=== PATIENT | female | born 1945 | race American Indian/Alaskan Native ===

== ENCOUNTER 2018-02-05 06:14 | Day surgery (SDC) | payer MEDICARE ==
[~2018-02-05 06:14] MED LIST: ANCEF/STERILE WATER 2 GM/20 ML 2 GM/20 ML SYRINGE IV NR; NACL 0.9% 1000 ML 1,000 ML IV SCH
[2018-02-05] MEDS ORDERED: NACL BACTERIOSTATIC INFILTRATI ONE (06:23)
[2018-02-05] MEDS ORDERED: XYLOCAINE MPF 2% ONE (07:01)
[2018-02-05] MEDS ORDERED: DIPRIVAN 10 MG/ML IV ONE (07:01)
[2018-02-05] MEDS ORDERED: DILAUDID ONE (07:03)
[2018-02-05 07:14] LABS: Basophils % (Auto) 0.8 % (0.0-1.8); Eosinophils # (Auto) 0.2 K/mm3 (0.0-0.4); Eosinophils % (Auto) 5.2 % (0.0-4.3); Hemoglobin 9.4 gm/dl (10.1-14.3); Lymphocytes # (Auto) 0.8 K/mm3 (1.2-5.4); Lymphocytes % (Auto) 20.3 % (13.4-35.0); Mean Corpuscular HGB Conc 33 % (30-34); Mean Corpuscular Hemoglobin 29 pg (28-32); Mean Corpuscular Volume 86 fl (79-97); Monocytes # (Auto) 0.5 K/mm3 (0.0-0.8); Monocytes % (Auto) 11.8 % (0.0-7.3); Platelet Count 222 K/mm3 (140-440); Red Blood Count 3.25 M/mm3 (3.65-5.03); Red Cell Distribution Width 16.5 % (13.2-15.2)
[2018-02-05] MEDS ORDERED: RIFADIN ONE (07:19)
[2018-02-05] MEDS ORDERED: MARCAINE 0.5% 30 ML INFILTRATI ONE (07:19)
[2018-02-05] MEDS ORDERED: NACL ONE (07:19)
[2018-02-05] MEDS ORDERED: HEPARIN 10,000 UNITS/10 ML ONE (07:19)
[2018-02-05] MEDS ORDERED: NACL 0.9% 500 ML 500 ML ONE (07:19)
[2018-02-05 07:26] LABS: Calcium 9.4 mg/dL (8.4-10.2)
[2018-02-05] MEDS ORDERED: DILAUDID IV PRN (07:26)
[2018-02-05] MEDS ORDERED: ZOFRAN IV PRN (07:26)
--- NOTE | 2018-02-05 07:36 | Anesthesia Consultation ---
Anesthesia Consult and Med Hx Date of service: 02/05/18 - Airway Anesthetic Teeth Evaluation: Edentulous ROM Head & Neck: Adequate Mental/Hyoid Distance: Adequate Mallampati Class: Class I Intubation Access Assessment: Good - Pulmonary Exam CTA: Yes - Cardiac Exam Anesthetic Concerns: Mild murmur detected during auscultation. - Pre-Operative Health Status ASA Pre-Surgery Classification: ASA4 Proposed Anesthetic Plan: General - Cardiovascular System Hx Hypertension: Yes (30 YEARS) - Central Nervous System Hx Psychiatric Problems: No - Endocrine Hx End Stage Renal Disease: Yes (Hx Left nephrectomy) Hx Hypothyroidism: Yes (Hx Thyroidectomy) - Hematic Hx Anemia: Yes (S/P 5 unit transfusion of pRBC's hgb 9.5 today) - Other Systems Hx Alcohol Use: No Hx Substance Use: No Hx Cancer: No Hx Obesity: Yes (bmi 42) - Additional Comments Anesthesia Medical History Comments: NAC
--- NOTE | 2018-02-05 07:37 | Anesthesia Day of Surgery ---
Anesthesia Day of Surgery - Day of Surgery Patient Examined: Yes Patient H&P Reviewed: Yes Patient is NPO: Yes
[2018-02-05] MEDS ORDERED: VERSED IV NR (08:00)
[2018-02-05] MEDS ORDERED: NACL 0.9% 1000 ML 1,000 ML IV SCH (08:00)
[2018-02-05] MEDS ORDERED: HEPARIN 10,000 UNITS/10 ML IV ONE (08:12)
[2018-02-05] MEDS ORDERED: RIFADIN IV ONE (08:12)
[2018-02-05] MEDS ORDERED: NACL 0.9% IR ONE (08:12)
[2018-02-05] MEDS ORDERED: NACL 0.9% 500 ML IRRIGATION ONE (08:12)
[2018-02-05] MEDS ORDERED: MARCAINE 0.5% INFILTRATI ONE (08:12)
[2018-02-05] MEDS ORDERED: ZOFRAN ONE (08:29)
[2018-02-05] MEDS ORDERED: DECADRON ONE (08:29)
--- NOTE | 2018-02-05 10:31 | Short Stay Summary ---
Short Stay Documentation Date of service: 02/05/18 Narrative H&P: See H&P - History H&P: obtained from office - Allergies and Medications Current Medications: Allergies No Known Allergies Allergy (Unverified 01/21/16 16:03) Home Medications Medication Instructions Recorded Confirmed Last Taken Type amLODIPine [Norvasc] 10 mg PO QDAY #30 tablet 01/24/16 02/05/18 02/04/18 07:00 Rx AtorvaSTATin [Lipitor] 20 mg PO QHS 01/31/18 02/05/18 02/04/18 07:00 History Furosemide [Lasix TAB] 40 mg PO QDAY 01/31/18 02/05/18 02/04/18 07:00 History Hydralazine HCl 50 mg PO TID 01/31/18 02/05/18 02/04/18 18:00 History Metoprolol [Lopressor] 25 mg PO QDAY 01/31/18 02/05/18 02/04/18 07:00 History cloNIDine [Clonidine] 1 each TD QWEEK 01/31/18 02/05/18 02/03/18 09:00 History Active Medications Hydromorphone HCl (Dilaudid) 0.25 mg IV Q10MIN PRN PRN Reason: Pain, Moderate (4-6) Stop: 02/05/18 13:00 Cefazolin Sodium (Ancef/Sterile Water 2 Gm/20 Ml) 2 gm in 20 mls @ 80 mls/hr IV PREOP NR; Protocol Stop: 02/05/18 23:59 Sodium Chloride (Nacl 0.9% 1000 Ml) 1,000 mls @ 42 mls/hr IV DIRECT SHRUTI Last Admin: 02/05/18 07:00 Dose: 42 mls/hr Sodium Chloride (Nacl 0.9% 1000 Ml) 1,000 mls @ 42 mls/hr IV DIRECT SHRUTI Midazolam HCl (Versed) 2 mg IV PREOP NR Stop: 02/05/18 23:59 Last Admin: 02/05/18 08:04 Dose: 2 mg Ondansetron HCl (Zofran) 4 mg IV ONCE PRN PRN Reason: Nausea And Vomiting Stop: 02/05/18 12:00 - Brief post op/procedure progress note Date of procedure: 02/05/18 Pre-op diagnosis: Chronic Renal Insufficiency Post-op diagnosis: same Procedure: Creation of Left Brachial Artery to Axillary Vein Arteriovenous Graft Using 6 mm Bovine Graft Anesthesia: ESTRADAA Surgeon: RADHA WREN Estimated blood loss: minimal Pathology: none Condition: stable - Disposition Condition at discharge: Good Disposition: DC-01 TO HOME OR SELFCARE Short Stay Discharge Plan Activity: other (No heavy lifting with left arm) Wound: open to air, keep clean and dry, other (Okay to wash the wound with soap and water but do not soak in water) Follow up with: RADHA WREN MD [Staff Physician] - 14 Days Prescriptions: HYDROcodone/APAP 7.5-325 [[place] 7.5/325] 1 each PO Q6HR PRN #40 tablet PRN Reason: Pain
--- NOTE | 2018-02-05 10:43 | Operative Report ---
Operative Report Operative Report: Date of procedure: 02/05/2018 Pre-operative diagnosis: Chronic Renal Insufficiency Post-operative diagnosis: Same Procedure(s): 1. Creation of Left Brachial Artery to Axillary Vein AV Graft with 6 mm Bovine Graft Surgeon: Dinh Beach MD Logistics/Shipper: None Anesthesia: General Endotracheal Anesthesia EBL: Minimal Counts: Correct Complications: None Condition: Stable Findings: Successful Creation of Left Arm AV Graft With Palpable Thrill and Palpable Radial Pulse at the Completion of the Case Specimen: None Indication: The patient is 73-year-old female with a history of chronic renal insufficiency was not yet on hemodialysis but it is anticipated that she will require within the next month or so. She is in need of long-term dialysis access. She was given the risks, benefits, and alternative procedures creation of dialysis access and consented to the procedure. Description of Procedure: The patient was brought to the operating room and laid in supine position after general endotracheal anesthesia was achieved the left arm was prepped and draped in normal sterile fashion. Ultrasound was used to identify the cephalic vein just below the antecubital crease and a transverse incision was created and carried down to the vein using sharp dissection. The vein was identified and dissected circumferentially however upon evaluation in the vein it was obvious that it had likely been accessed multiple times for venipuncture and was sclerotic and not usable for creation of a fistula. Additionally the basilic vein was quite small and would likely not be an adequate vein for creation of a fistula. I dissected out the brachial artery through this incision and controlled it both proximally and distally with vessel loops. A second incision was created in longitudinal fashion on the medial aspect of the arm just distal to the axillary crease and carried down to the axillary vein using sharp dissection. Axillary vein was dissected out circumferentially and controlled with a vessel loop. I then used a Akanksha-Wick tunneler to tunnel from the brachial artery incision to the axillary vein incision and then put an 6 mm bovine through the tunnel. I infused with heparinized saline to ensure that it was not twisted or kinked. I put the brachial artery vessel loops on tension controlling the flow and then created an arteriotomy using an 11 blade and Ortega scissors. I beveled the graft and created an end-to-side anastomosis using 6-0 Prolene running fashion. I clamped the graft just proximal to the anastomosis and then released the vessel loops restoring flow in the brachial artery. I placed quick clot in incision to achieve hemostasis. I cut the proximal end of the graft to the appropriate length and beveled the graft in preparation for a venous anastomosis. I controlled the axillary vein a Satinsky clamp and created a venotomy using an 11 blade and Ortega scissors. I created an end to side anastomosis using a 6-0 Prolene in running fashion. Prior to completing the anastomosis I flushed the graft to ensure there was no thrombus and then completed the anastamosis. I released all clamps allowing flow into the AV graft which had an excellent thrill. I packed the wound with quick clot to achieve hemostasis. I anesthetized both wounds with 0.5% Marcaine and then closed both wounds in 2 layers using 3-0 Vicryl in running fashion in the deep dermal layer and 4-0 Monocryl in running fashion the subcuticular layer. I dressed both wounds with Surgicel. The patient tolerated the procedure well all sponge needle and instrument counts were correct the patient was taken to recovery in stable condition.
[2018-02-05 11:36] VITALS: BP 126/54
== END 2018-02-05 12:00 | disposition home or self-care (01) ==
LOC: OR 06:14
PROVIDERS: ATTEND Surgery Vascular Surgery
DX: I12.0 Hypertensive chronic kidney disease with stage 5 chronic kidney disease or end stage renal disease (principal); N18.6 End stage renal disease; J45.909 Unspecified asthma, uncomplicated; M19.90 Unspecified osteoarthritis, unspecified site; E89.0 Postprocedural hypothyroidism; E66.9 Obesity, unspecified; Z68.41 Body mass index [BMI] 40.0-44.9, adult; Z79.899 Other long term (current) drug therapy; Z99.2 Dependence on renal dialysis; Z90.5 Acquired absence of kidney; Z82.49 Family history of ischemic heart disease and other diseases of the circulatory system
CPT/HCPCS: 36415; 36825; 80048; 85025; J0690; J1100; J1170; J1644; J2250; J2405; J2704; J3490; J7030; J7040; C1768

== ENCOUNTER 2019-04-16 08:41 | Emergency (ER) | payer MEDICARE ==
[2019-04-16 08:48] VITALS: BP 156/65
[2019-04-16] MEDS ORDERED: ZOFRAN IM ONE (09:22)
[2019-04-16] MEDS ORDERED: MORPHINE IM ONE (09:22)
--- NOTE | 2019-04-16 09:26 | Emergency Department Report ---
ED Extremity Problem HPI - General Chief complaint: Pain General Stated complaint: KNEE PAIN/SWELLING Time Seen by Provider: 04/16/19 09:17 Source: patient, family Mode of arrival: Wheelchair Limitations: No Limitations - History of Present Illness Initial comments: Patient is 74 years old female, nontoxic, presented to the ER accompanied by her daughter and granddaughter. Patient is complaining of right knee pain for the last week. Patient denied any recent injury or trauma. Patient stated that the pain is just localized to the right knee. Patient denied any fever, chills, chest pain, shortness of breath. No calf pain or tenderness. MD Complaint: extremity pain -: week(s) (1) Location: right History of Same: Yes -: Yes arthralgia - Related Data Home Medications Medication Instructions Recorded Confirmed Last Taken AtorvaSTATin [Lipitor] 20 mg PO QHS 01/31/18 02/05/18 02/04/18 07:00 Furosemide [Lasix TAB] 40 mg PO QDAY 01/31/18 02/05/18 02/04/18 07:00 Hydralazine HCl 50 mg PO TID 01/31/18 02/05/18 02/04/18 18:00 Metoprolol [Lopressor TAB] 25 mg PO QDAY 01/31/18 02/05/18 02/04/18 07:00 cloNIDine [Clonidine] 1 each TD QWEEK 01/31/18 02/05/18 02/03/18 09:00 Previous Rx's Medication Instructions Recorded Last Taken Type amLODIPine [Norvasc] 10 mg PO QDAY #30 tablet 01/24/16 02/04/18 07:00 Rx HYDROcodone/APAP 7.5-325 [[place] 1 each PO Q6HR PRN #40 tablet 02/05/18 Unknown Rx 7.5/325] Allergies Allergy/AdvReac Type Severity Reaction Status Date / Time No Known Allergies Allergy Unverified 01/21/16 16:03 ED Review of Systems ROS: Stated complaint: KNEE PAIN/SWELLING Other details as noted in HPI Comment: All other systems reviewed and negative Constitutional: denies: chills, fever Respiratory: denies: cough, shortness of breath Cardiovascular: denies: chest pain, palpitations Gastrointestinal: denies: abdominal pain, nausea, vomiting Musculoskeletal: denies: back pain Neurological: denies: headache, weakness, numbness, paresthesias, confusion ED Past Medical Hx - Past Medical History Hx Hypertension: Yes (30 YEARS) Hx Arthritis: Yes Hx HIV: No Additional medical history: left kidney failure/removal 1989,thyroidectomy - Surgical History Past Surgical History?: No Additional Surgical History: left kidney removed,thyroidectomy - Social History Smoking Status: Never Smoker Substance Use Type: None - Medications Home Medications: Home Medications Medication Instructions Recorded Confirmed Last Taken Type amLODIPine [Norvasc] 10 mg PO QDAY #30 tablet 01/24/16 02/05/18 02/04/18 07:00 Rx AtorvaSTATin [Lipitor] 20 mg PO QHS 01/31/18 02/05/18 02/04/18 07:00 History Furosemide [Lasix TAB] 40 mg PO QDAY 01/31/18 02/05/18 02/04/18 07:00 History Hydralazine HCl 50 mg PO TID 01/31/18 02/05/18 02/04/18 18:00 History Metoprolol [Lopressor TAB] 25 mg PO QDAY 01/31/18 02/05/18 02/04/18 07:00 History cloNIDine [Clonidine] 1 each TD QWEEK 01/31/18 02/05/18 02/03/18 09:00 History HYDROcodone/APAP 7.5-325 [[place] 1 each PO Q6HR PRN #40 tablet 02/05/18 Unknown Rx 7.5/325] ED Physical Exam - General Limitations: No Limitations General appearance: alert, in no apparent distress - Head Head exam: Present: atraumatic, normocephalic, normal inspection - Eye Eye exam: Present: normal appearance - ENT ENT exam: Present: normal exam, normal orophraynx, mucous membranes moist - Neck Neck exam: Present: normal inspection, full ROM. Absent: tenderness, meningismus, lymphadenopathy, thyromegaly - Respiratory Respiratory exam: Present: normal lung sounds bilaterally - Cardiovascular Cardiovascular Exam: Present: regular rate, normal rhythm, normal heart sounds - GI/Abdominal GI/Abdominal exam: Present: soft, normal bowel sounds. Absent: distended, tenderness, guarding, rebound, rigid, bruit, pulsatile mass - Extremities Exam Extremities exam: Present: normal capillary refill, pedal edema. Absent: calf tenderness - Expanded Lower Extremity Exam Right Knee exam: Present: tenderness, swelling. Absent: abrasion, laceration, ecchymosis, deformity, crepidus - Back Exam Back exam: Present: normal inspection, full ROM. Absent: CVA tenderness (R) - Neurological Exam Neurological exam: Present: alert, oriented X3, CN II-XII intact - Skin Skin exam: Present: warm, intact, normal color ED Course Vital Signs 04/16/19 08:43 Temperature 98.1 F Pulse Rate 77 Respiratory 16 Rate Blood Pressure 156/65 O2 Sat by Pulse 99 Oximetry ED Medical Decision Making - Radiology Data Radiology results: report reviewed - Medical Decision Making Patient is 74 years old female, nontoxic, presented to the ER accompanied by her daughter and granddaughter. Patient is complaining of right knee pain for the last week. Patient denied any recent injury or trauma. Patient stated that the pain is just localized to the right knee. Patient denied any fever, chills, chest pain, shortness of breath. No calf pain or tenderness. Right knee showed a severe or arthritis. Patient given morphine. Patient stated that symptoms is better. Patient given a prescription for tramadol and a follow-up was Dr. Becker. Patient also advised to follow-up with her primary care physician in the next 2-3 days and to attend to the ER if symptoms are not improved or if she develop any other symptoms. Critical care attestation.: If time is entered above; I have spent that time in minutes in the direct care of this critically ill patient, excluding procedure time. ED Disposition Clinical Impression: Right knee pain Disposition: DC-01 TO HOME OR SELFCARE Is pt being admited?: No Condition: Stable Instructions: Arthralgia (ED), Osteoarthritis (ED) Referrals: JODI BECKER MD [Staff Physician] - 3-5 Days
--- NOTE | 2019-04-16 10:45 | XRay Report ---
RIGHT KNEE HISTORY: Knee pain COMPARISON: None. TECHNIQUE: 3 views of the right knee obtained. FINDINGS: Bones: No fracture or dislocation. There is slight lateral subluxation of the tibia relative to the femur. Joint spaces: Moderately severe osteoarthritis with near complete loss of the medial joint space and large medial osteophytes. Widening of the lateral joint space. Narrowing of the patellofemoral joint with osteophytes.. Soft tissues: Mild distention of the suprapatellar bursa. Extensive arterial calcifications. Additional findings: None. IMPRESSION: 1. Moderately severe osteoarthritis with greater involvement of the medial joint. 2. Slight lateral subluxation of the tibia. 3. Suspect a small knee joint effusion. Signer Name: Tomas Keen MD Signed: 04/16/2019 10:41 AM Workstation Name: [id number]
== END 2019-04-16 11:17 | disposition home or self-care (01) ==
LOC: ED 08:41
DX: M25.561 Pain in right knee (principal); I10 Essential (primary) hypertension; M19.90 Unspecified osteoarthritis, unspecified site; Z90.89 Acquired absence of other organs; Z79.899 Other long term (current) drug therapy
CPT/HCPCS: 73562; 96372; 99283; J2270; J2405